=== PATIENT | female | born 1945 | race Caucasian/White ===

== ENCOUNTER 2020-09-15 10:27 | Inpatient (IN) ==
[2020-09-15] MEDS ORDERED: KETOROLAC 30 MG/1 ML VIAL IV STA (10:56)
[2020-09-15] MEDS ORDERED: SODIUM CHLORIDE 0.9% 1,000 ML IV STA (10:56)
[2020-09-15] MEDS ORDERED: ONDANSETRON 4 MG/2 ML VIAL IM STA (10:57)
[2020-09-15 12:28] LABS: Basophils % 0.3 % (0.0-0.8); Eosinophils # 0.1 10*3/uL (0.0-0.87); Eosinophils % 0.8 % (0.00-10.9); Immature Granulocytes % 1.9 %; Immature Granulocytes Absolute 0.14 #; Lymphocytes # 0.7 10*3/uL (1.4-4.0); Lymphocytes % 9.8 % (21.3-54.2); Mean Corpuscular HGB Conc 36.8 GM/DL (32-36); Mean Corpuscular Volume 81.7 FL (87-102); Mean Platelet Volume 10.1 FL (9.6-12.0); Monocytes % 4.3 % (1.7-12.7); Neutrophils % 82.9 % (38.7-73.9); Platelet Count 187 T/CUMM (130-400); Red Blood Count 4.65 MC/CUMM (3.8-5.5); White Blood Count 7.3 T/CUMM (4-12)
[2020-09-15 12:37] LABS: Albumin 3.3 G/DL (3.4-5.0); Bilirubin,Total 0.9 MG/DL (0.2-1.0); Calcium 9.2 MG/DL (8.5-10.1); Osmolality,Calculated 273.9 MOS/KG (273-304); Total Protein 7.8 G/DL (6.4-8.3)
[2020-09-15] MEDS ORDERED: DEXTROSE 50% 25 GM/50 ML VIAL IV PRN ×2 (13:51)
[2020-09-15] MEDS ORDERED: ONDANSETRON 4 MG/2 ML VIAL IV PRN (13:51)
[2020-09-15] MEDS ORDERED: GLUCAGON 1 MG VIAL IM PRN ×2 (13:51)
[2020-09-15 13:54] LABS: Bacteria,Urine Occasional /HPF (Few); Bilirubin,Urine Negative (Negative); Blood, Urine Moderate mg/dL (Negative); Glucose,Urine (UA) >=500 mg/dL (Negative); Ketones,Urine Negative (Negative); Nitrite,Urine Negative (Negative); Protein,Urine Negative; RBC,Urine 1 /HPF (0-4); Squamous Epithelial Cell,Urine Occasional /HPF (0-10); Urine Appearance CLEAR (Clear); Urine Color Straw (Yellow); Urine Specific Gravity 1.016 (1.001-1.035); Urine Urobilinogen < 2.0 EU/DL (0.2-1.0); WBC,Urine 2 /HPF (0-6)
[2020-09-15] MEDS: INSULIN LISPRO 100 UNIT/ML SUBCUT SCH ×3 (17:29→21:48)
[2020-09-15] MEDS: SODIUM CHLORIDE 0.9% 1,000 ML IV SCH (17:30)
[2020-09-15 22:44] LABS: Calcium 8.6 MG/DL (8.5-10.1); Osmolality,Calculated 278.7 MOS/KG (273-304)
[2020-09-16] MEDS: INSULIN LISPRO 100 UNIT/ML SUBCUT SCH ×6 (02:42→21:27)
[2020-09-16 04:34] LABS: Basophils % 0.5 % (0.0-0.8); Eosinophils # 0.1 10*3/uL (0.0-0.87); Eosinophils % 1.1 % (0.00-10.9); Hematocrit 38.7 VOL% (35.7-47.0); Hemoglobin 13.6 GM/DL (12.0-16.0); Immature Granulocytes % 1.6 %; Immature Granulocytes Absolute 0.14 #; Lymphocytes # 2.1 10*3/uL (1.4-4.0); Lymphocytes % 23.6 % (21.3-54.2); Mean Corpuscular HGB Conc 35.1 GM/DL (32-36); Mean Corpuscular Volume 83.8 FL (87-102); Mean Platelet Volume 10.1 FL (9.6-12.0); Monocytes % 8.7 % (1.7-12.7); Neutrophils % 64.5 % (38.7-73.9); Platelet Count 244 T/CUMM (130-400); Red Blood Count 4.62 MC/CUMM (3.8-5.5); Red Cell Distribution Width 14.3 % (9.3-17.3); White Blood Count 8.8 T/CUMM (4-12)
[2020-09-16 05:35] LABS: Calcium 9.1 MG/DL (8.5-10.1); Osmolality,Calculated 277.2 MOS/KG (273-304); Risk Ratio 4.91; Thyroid Stimulating Hormone 0.414 uIU/ml (0.358-3.74); VLDL CHOLESTEROL 100.6 MG/DL
[2020-09-16] MEDS: SODIUM CHLORIDE 0.9% 1,000 ML IV SCH (06:44)
[2020-09-16 08:26] LABS: Immunoglobulin A 359 MG/DL (70-400); Immunoglobulin G 1040 MG/DL (700-1600); Immunoglobulin M 120 MG/DL (40-230)
[2020-09-16] MEDS: SIMVASTATIN 20 MG TABLET PO SCH (21:27)
[2020-09-17] MEDS: INSULIN LISPRO 100 UNIT/ML SUBCUT SCH ×6 (02:25→21:04)
[2020-09-17] MEDS: ACETAMINOPHEN 325 MG TABLET PO PRN ×2 (05:49→18:27)
[2020-09-17 05:57] LABS: Basophils # 0.1 10*3/uL (0.0-0.2); Basophils % 0.8 % (0.0-0.8); Eosinophils # 0.1 10*3/uL (0.0-0.87); Eosinophils % 1.1 % (0.00-10.9); Hematocrit 37.7 VOL% (35.7-47.0); Hemoglobin 13.1 GM/DL (12.0-16.0); Immature Granulocytes Absolute 0.13 #; Lymphocytes % 15.7 % (21.3-54.2); Mean Corpuscular HGB Conc 34.7 GM/DL (32-36); Mean Corpuscular Volume 86.1 FL (87-102); Neutrophils % 70.4 % (38.7-73.9); Platelet Count 178 T/CUMM (130-400); Red Blood Count 4.38 MC/CUMM (3.8-5.5); Red Cell Distribution Width 14.4 % (9.3-17.3); White Blood Count 6.4 T/CUMM (4-12)
[2020-09-17 06:41] LABS: Osmolality,Calculated 279.8 MOS/KG (273-304)
[2020-09-17 14:19] LABS: Total Volume,Urine 1900 ML (400-2000)
[2020-09-17 14:33] LABS: Total Protein 24 Hr Ur Result 190 MG/24HR (0-149.1)
[2020-09-17] MEDS: NEOMYCIN/POLYMYXIN/HC OTIC SOLN 10 ML BOTTLE LEFT EAR SCH ×2 (15:35→20:40)
[2020-09-17] MEDS: SIMVASTATIN 20 MG TABLET PO SCH (20:40)
[2020-09-18] MEDS: INSULIN LISPRO 100 UNIT/ML SUBCUT SCH ×6 (01:22→23:16)
[2020-09-18] MEDS: ACETAMINOPHEN 325 MG TABLET PO PRN (05:28)
[2020-09-18 06:10] LABS: Calcium 8.9 MG/DL (8.5-10.1); Osmolality,Calculated 280.8 MOS/KG (273-304)
[2020-09-18] MEDS: NEOMYCIN/POLYMYXIN/HC OTIC SOLN 10 ML BOTTLE LEFT EAR SCH ×3 (11:33→21:01)
[2020-09-18] MEDS: SIMVASTATIN 20 MG TABLET PO SCH (21:01)
[2020-09-19] MEDS: INSULIN LISPRO 100 UNIT/ML SUBCUT SCH ×6 (03:10→22:13)
[2020-09-19] MEDS: NEOMYCIN/POLYMYXIN/HC OTIC SOLN 10 ML BOTTLE LEFT EAR SCH ×3 (10:04→20:51)
[2020-09-19] MEDS: SIMVASTATIN 20 MG TABLET PO SCH (20:51)
[2020-09-20] MEDS: INSULIN LISPRO 100 UNIT/ML SUBCUT SCH ×3 (02:15→10:41)
[2020-09-20] MEDS: ACETAMINOPHEN 325 MG TABLET PO PRN (02:15)
[2020-09-20 05:38] LABS: Basophils % 0.7 % (0.0-0.8); Eosinophils # 0.1 10*3/uL (0.0-0.87); Eosinophils % 1.7 % (0.00-10.9); Hematocrit 35.4 VOL% (35.7-47.0); Hemoglobin 12.2 GM/DL (12.0-16.0); Immature Granulocytes % 2.8 %; Immature Granulocytes Absolute 0.15 #; Lymphocytes # 1.1 10*3/uL (1.4-4.0); Lymphocytes % 21.1 % (21.3-54.2); Mean Corpuscular HGB Conc 34.5 GM/DL (32-36); Mean Corpuscular Volume 86.8 FL (87-102); Mean Platelet Volume 9.7 FL (9.6-12.0); Monocytes % 12.6 % (1.7-12.7); Neutrophils % 61.1 % (38.7-73.9); Platelet Count 183 T/CUMM (130-400); Red Blood Count 4.08 MC/CUMM (3.8-5.5); Red Cell Distribution Width 14.6 % (9.3-17.3); White Blood Count 5.4 T/CUMM (4-12)
[2020-09-20 05:59] LABS: Osmolality,Calculated 282.4 MOS/KG (273-304)
[2020-09-20] MEDS ORDERED: LEVOTHYROXINE 175 MCG TABLET PO SCH (07:00)
[2020-09-20] MEDS: NEOMYCIN/POLYMYXIN/HC OTIC SOLN 10 ML BOTTLE LEFT EAR SCH (08:43)
[2020-09-20] MEDS ORDERED: SIMVASTATIN 20 MG TABLET PO SCH (09:00)
[2020-09-20] MEDS ORDERED: MEMANTINE 10 MG TABLET PO SCH (09:00)
[2020-09-20] MEDS ORDERED: MAGNESIUM SULF RIDER 2 GM in PREMIX 1 EACH IV ONE (09:00)
[2020-09-20] MEDS ORDERED: DULoxetine 30 MG CAPSULE PO SCH (09:00)
[2020-09-20] MEDS ORDERED: POTASSIUM CHLORIDE 20 MEQ PACK PO ONE (09:00)
[2020-09-20] MEDS ORDERED: PANTOPRAZOLE 40 MG TABLET PO SCH (09:00)
[2020-09-20 11:58] VITALS: BP 147/82
[2020-09-20 16:46] LABS: Immunoglobulin E 4.6 kU/L (<= 214)
[2020-09-21 05:52] LABS: 24 Hr Protein (Bench) 190 MG/24HR (0-149.1)
[2020-09-21] MEDS ORDERED: predniSONE 20 MG TABLET PO SCH (09:00)
[2020-09-21 15:42] LABS: Immunoglobulin D < 1 mg/dL (<=10)
== END 2020-09-20 12:30 | disposition home or self-care (01) | DRG 638 ==
LOC: N.ED 10:27 → N.EDINP 13:52 → SUATTDRO 13:52 → INTOOBSV 13:52 → OBSVTOIN 13:52 → N.3E 09-16 06:28
PROVIDERS: ADMIT Internal Medicine; ATTEND Internal Medicine